=== PATIENT | male | born 1955 | race Caucasian/White ===

== ENCOUNTER 2017-04-08 02:45 | Emergency (ER) | payer OTHER ==
--- NOTE | 2017-04-08 03:16 | ED Physician Documentation ---
PD HPI URI - Stated complaint Stated Complaint: COUGH,CONGESTION - Chief complaint Chief Complaint: Resp - History obtained from History obtained from: Patient, Family - History of Present Illness Timing - onset: How many days ago (3) Timing details: Gradual onset, Still present Associated symptoms: Fever, Chills, Nasal congestion, Rhinorrhea, Productive cough Contributing factors: No: Sick contact Similar symptoms before: Has not had sx before Recently seen: Not recently seen - Additional information Additional information: Patient is a 62 year old male with no significant past medical history who is presenting to the emergency department for cough, congestion, fevers for the last three days. Review of Systems Constitutional: reports: Fever, Chills Eyes: denies: Decreased vision Ears: denies: Ear pain, Drainage/discharge Nose: reports: Rhinorrhea / runny nose, Congestion, Sinus pressure / pain Throat: denies: Sore throat Respiratory: reports: Cough. denies: Wheezing GI: denies: Nausea, Vomiting : reports: Reviewed and negative Musculoskeletal: denies: Neck pain, Back pain, Extremity pain Neurologic: denies: Generalized weakness, Focal weakness Immunocompromised: denies: Immunocompromised PD PAST MEDICAL HISTORY - Past Medical History Past Medical History: No - Past Surgical History Past Surgical History: No - Present Medications Home Medications: Ambulatory Orders Medication Instructions Recorded Confirmed Azithromycin [Zithromax] 250 mg PO DAILY #4 tablet 04/08/17 Benzonatate [Tessalon Perle] 100 mg PO TID #15 capsule 04/08/17 Codeine Phosphate/Guaifenesin 5 ml PO DAILY #100 ml 04/08/17 [Guaifen-Codeine 100-10 mg/5 ml] - Allergies Allergies/Adverse Reactions: Allergies Allergy/AdvReac Type Severity Reaction Status Date / Time No Known Drug Allergies Allergy Verified 04/08/17 03:00 - Social History Does the pt smoke?: No Smoking Status: Never smoker Does the pt drink ETOH?: No Does the pt have substance abuse?: No - Immunizations Immunizations are current?: Yes - POLST Patient has POLST: No PD ED PE NORMAL - Vitals Vital signs reviewed: Yes - General General: Alert and oriented X 3 - HEENT HEENT: Atraumatic, PERRL - Neck Neck: Supple, no meningeal sign - Cardiac Cardiac: RRR, No murmur - Abdomen Abdomen: Soft, Non tender, Non distended - Derm Derm: Normal color, Warm and dry, No rash - Extremities Extremities: No deformity, No edema - Neuro Neuro: Alert and oriented X 3, No motor deficit, No sensory deficit, Normal speech Eye Opening: Spontaneous Motor: Obeys Commands Verbal: Oriented GCS Score: 15 PD ED PE EXPANDED - HEENT HEENT: Nasal congestion, Rhinorrhea - Respiratory Respiratory: Decreased breath sounds, Right lower lobe, Left lower lobe Results - Vitals Vitals: Vital Signs - 24 hr 04/08/17 02:45 Temperature 37.6 C H Heart Rate 84 Respiratory 19 Rate Blood Pressure 127/75 O2 Saturation 96 Oxygen O2 Source Room air - Labs Labs: Laboratory Tests 04/08/17 02:54 Influenza A (Rapid) Negative Influenza B (Rapid) Negative Influenza Types A,B Ag - - Rads (name of study) chest x-ray Radiology: Final report received (bilateral infiltrates) PD MEDICAL DECISION MAKING - ED course Complexity details: reviewed old records, reviewed results, re-evaluated patient , considered differential, d/w patient, d/w family ED course: Patient was seen and examined at bedside. flu swab was performed and imaging was ordered. when patient returned the results were reviewed. patient was found to have bilateral infiltrates. Patient was treated with azithromycin and robitussin ac. Patient was able to tolerate PO without difficulty and was appropriate for outpatient antibiotics. Patient was discharged in stable condition. Departure - Departure Disposition: 01 Home, Self Care Clinical Impression: Pneumonia Condition: Good Instructions: ED Pneumonia Adult Follow-Up: primary,care provider [Other] - Within 3 Days Prescriptions: Azithromycin [Zithromax] 250 mg PO DAILY #4 tablet Benzonatate [Tessalon Perle] 100 mg PO TID #15 capsule Codeine Phosphate/Guaifenesin [Guaifen-Codeine 100-10 mg/5 ml] 5 ml PO DAILY # 100 ml Comments: Your symptoms today are being caused by pneumonia. You had your first dose of antibiotics today and will need to be on them for 5 days total. You can take motrin or tylenol for fevers and chills and over the counter cold and flu medications. You have been prescribed two cough medicines, the one with codeine you should take at not and you cannot drive or operate heavy machinery while taking it. You should follow up with your doctor this week. You may return to the emergency department at any time for new, worsening or uncontrollable symptoms.
--- NOTE | 2017-04-08 03:27 | XRAY Report ---
EXAM: CHEST RADIOGRAPHY EXAM DATE: 04/08/2017 03:09 AM. CLINICAL HISTORY: Cough and congestion. Fever. COMPARISON: None. TECHNIQUE: 2 views. FINDINGS: Lungs/Pleura: Bibasilar atelectasis or infiltrate. No pleural effusion seen. No pneumothorax. Mediastinum: Heart and mediastinal contours are unremarkable. Other: None. IMPRESSION: 1. Bibasilar atelectasis or infiltrate. [facility] Referring Provider Line: [phone] SITE ID: [id number]
[2017-04-08] MEDS ORDERED: guaiFENesin/CODEINE 5 ML UDC PO STA (03:29)
[2017-04-08] MEDS ORDERED: AZITHROMYCIN 250 MG TABLET PO STA (03:29)
[2017-04-08 03:57] VITALS: BP 111/69
== END 2017-04-08 03:55 | disposition home or self-care (01) ==
LOC: ED 02:45
DX: J18.9 Pneumonia, unspecified organism (principal)
CPT/HCPCS: 71046; 87275; 87276; 99283; 99284; A9270

== ENCOUNTER 2017-12-31 12:30 | Emergency (ER) | payer OTHER ==
[2017-12-31 13:09] VITALS: BP 113/71
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
== END 2017-12-31 14:38 | disposition home or self-care (01) ==
LOC: ED 12:30
DX: S16.1XXA Strain of muscle, fascia and tendon at neck level, initial encounter (principal); V43.52XA Car driver injured in collision with other type car in traffic accident, initial encounter
CPT/HCPCS: 99283

== ENCOUNTER 2018-12-18 06:58 | Day surgery (SDC) | payer OTHER ==
[2018-12-18] MEDS ORDERED: MIDAZOLAM 2 MG/2 ML VIAL IVP ONE (06:59)
[2018-12-18] MEDS ORDERED: fentaNYL 100 MCG/2 ML VIAL IVP ONE (06:59)
[2018-12-18] MEDS ORDERED: LACTATED RINGERS 1,000 ML IV ONE (07:23)
[2018-12-18 10:11] VITALS: BP 104/74
== END 2018-12-18 06:59 | disposition home or self-care (01) ==
LOC: SDS 06:58
PROVIDERS: ATTEND Surgery
PROC: 0DBK8ZZ Excision of Ascending Colon, Via Natural or Artificial Opening Endoscopic (ICD-10-PCS; 2018-12-18)
PROC: 0DBN8ZZ Excision of Sigmoid Colon, Via Natural or Artificial Opening Endoscopic (ICD-10-PCS; principal; 2018-12-18 08:15)
DX: Z12.11 Encounter for screening for malignant neoplasm of colon (principal); D12.2 Benign neoplasm of ascending colon; D12.5 Benign neoplasm of sigmoid colon; K63.5 Polyp of colon
CPT/HCPCS: 45380; 45385; 88305; J7120

== ENCOUNTER 2019-05-07 16:34 | Emergency (ER) | payer MEDICARE, OTHER ==
--- NOTE | 2019-05-07 17:00 | ED Physician Documentation ---
History of Present Illness - Stated complaint Stated Complaint: COUGH,R SIDE CHEST PAIN, - Chief complaint Chief Complaint: General - History obtained from History obtained from: Patient - Additonal information Additional information: 64-year-old male with no past medical history. He is here today with a one-week history of runny nose, sinus congestion, mild sore throat, and a cough he has had past 2 to 3 days. He states he has a cough he has right-sided chest pain. He denies any fevers, myalgias, or chills. No abdominal pain, nausea, vomiting, or diarrhea. No urinary complaints. No skin changes.Patient denies any past surgeries or hospitalizations. He states he did have a walking pneumonia Approximately 1 week ago and was treated as an outpatient with antibiotics. Review of Systems Constitutional: reports: Fatigue. denies: Fever, Chills, Myalgias, Sweats Eyes: denies: Loss of vision, Decreased vision, Photophobia, Discharge Ears: denies: Ear pain, Drainage/discharge, Reviewed and negative Nose: reports: Rhinorrhea / runny nose, Congestion, Sinus pressure / pain. denies: Foreign Body Throat: reports: Sore throat. denies: Oral lesions / sores, Reviewed and negative Cardiac: reports: Chest pain / pressure. denies: Palpitations, Pedal edema, Calf pain Respiratory: reports: Cough. denies: Dyspnea, Hemoptysis GI: denies: Abdominal Pain, Nausea, Vomiting, Diarrhea : reports: Reviewed and negative Skin: denies: Rash Musculoskeletal: denies: Neck pain PD PAST MEDICAL HISTORY - Past Medical History Past Medical History: No Cardiovascular: None Respiratory: None Neuro: None Endocrine/Autoimmune: None GI: None : None HEENT: None Psych: None Musculoskeletal: None Derm: None - Past Surgical History Past Surgical History: No General: Colonoscopy - Present Medications Home Medications: Ambulatory Orders Medication Instructions Recorded Confirmed No Known Home Medications 12/17/18 12/17/18 - Allergies Allergies/Adverse Reactions: Allergies Allergy/AdvReac Type Severity Reaction Status Date / Time No Known Drug Allergies Allergy Verified 05/07/19 16:42 - Social History Does the pt smoke?: No Smoking Status: Never smoker Does the pt drink ETOH?: No Does the pt have substance abuse?: No - Immunizations Immunizations are current?: Yes - POLST Patient has POLST: No PD ED PE NORMAL - Vitals Vital signs reviewed: Yes - General General: Alert and oriented X 3 - HEENT HEENT: Atraumatic, PERRL, Pharynx benign. No: Ears normal - Neck Neck: Supple, no meningeal sign - Cardiac Cardiac: No murmur - Respiratory Respiratory: No respiratory distress, Clear bilaterally - Abdomen Abdomen: Normal bowel sounds - Derm Derm: Normal color - Extremities Extremities: No deformity - Neuro Neuro: Alert and oriented X 3 Motor: Obeys Commands Verbal: Oriented Results - Vitals Vitals: Vital Signs - 24 hr 05/07/19 05/07/19 05/07/19 16:38 16:59 18:10 Temperature 36.4 C L 36.8 C Heart Rate 62 57 L 60 Respiratory 16 16 Rate Blood Pressure 126/83 H 128/88 H 118/88 H O2 Saturation 97 99 98 Oxygen O2 Source Room air - Labs Labs: Laboratory Tests 05/07/19 17:10 WBC 4.0 L RBC 4.43 L Hgb 13.2 L Hct 39.0 L MCV 88.0 MCH 29.8 MCHC 33.8 RDW 12.2 Plt Count 218 MPV 9.4 Neut # (Auto) 2.2 Lymph # (Auto) 1.2 L Sully # (Auto) 0.4 Eos # (Auto) 0.1 Baso # (Auto) 0.0 Absolute Nucleated RBC 0.00 Nucleated RBC % 0.0 PD MEDICAL DECISION MAKING - ED course Complexity details: reviewed results, re-evaluated patient, considered differential, other (Patient remained nontoxic-appearing in no respiratory distress during the ER course. Discussed his unremarkable chest x-ray and CBC. His covert screening is pending. I do believe patient can safely be discharged from the emergency room at this time without further testing. Patient is agreeable to this. He agrees to maintain isolation precautions until he is symptom free for 3 to 5 days. He may call back within 24 hours to check the status of his test results. We discussed the signs and symptoms of respiratory distress. He will return to the emergency room at any time for any emergent changes or concerns.) Departure - Departure Disposition: 01 Home, Self Care Clinical Impression: Viral syndrome Condition: Stable Instructions: ED Viral Syndrome Comments: Maintain oral hydration. Use ibuprofen and Tylenol as needed for comfort. You may call back to discuss your pending coated test results. Return to the emergency room at any time for any emergent changes as needed.
[2019-05-07 17:23] LABS: EOSINOPHILS # (AUTO) 0.1 10^3/uL (0.0-0.7); EOSINOPHILS % (AUTO) 1.3 %; HGB - HEMOGLOBIN 13.2 g/dL (14.0-18.0); LYMPHOCYTES # (AUTO) 1.2 10^3/uL (1.5-3.5); LYMPHOCYTES % (AUTO) 31.3 %; MEAN CORPUSCULAR HEMOGLOBIN 29.8 pg (27.0-31.0); MEAN CORPUSCULAR HGB CONC 33.8 g/dL (32.0-36.0); MEAN PLATELET VOLUME 9.4 fL (7.4-11.4); MONOCYTES # (AUTO) 0.4 10^3/uL (0.0-1.0); MONOCYTES % (AUTO) 10.9 %; NEUTROPHILS # (AUTO) 2.2 10^3/uL (1.5-6.6); NEUTROPHILS % (AUTO) 55.2 %; PLT - PLATELET COUNT 218 10^3/uL (130-450); RED BLOOD COUNT 4.43 10^6/uL (4.70-6.10); RED CELL DISTRIBUTION WIDTH 12.2 % (12.0-15.0)
--- NOTE | 2019-05-07 18:09 | XRAY Report ---
Reason: chest pain Procedure Date: 05/07/2019 Accession Number: [id number] / [id number] Procedure: XR - Chest 1 View X-Ray CPT Code: 70998 Final Report FULL RESULT: EXAM: CHEST RADIOGRAPHY EXAM DATE: 05/07/2019 05:37 PM. CLINICAL HISTORY: Chest pain. COMPARISON: CHEST 2 VIEW 04/08/2017 2:55 AM. TECHNIQUE: 1 view. FINDINGS: Lungs/Pleura: No focal opacities evident. No pleural effusion. No pneumothorax. Mediastinum: Within exam limitations, the cardiomediastinal contour is normal. IMPRESSION: No acute cardiopulmonary disease seen. [facility]
[2019-05-07 18:11] VITALS: BP 118/88
== END 2019-05-07 18:51 | disposition home or self-care (01) ==
LOC: ED 16:34
DX: B34.9 Viral infection, unspecified (principal)
CPT/HCPCS: 71045; 81599; 85025; 99283; 99284

== ENCOUNTER 2019-10-30 12:02 | Outpatient (CLI) | payer MEDICARE, OTHER ==
--- NOTE | 2019-10-30 14:36 | XRAY Report ---
PROCEDURE: Hip w/Pelvis 2-3V LT INDICATIONS: PAIN IN LEFT HIP TECHNIQUE: AP pelvis with lateral view(s) of the left hip(s). COMPARISON: None. FINDINGS: Bones: No fractures or dislocations. Pelvic ring appears intact. No suspicious bony lesions. Soft tissues: The visualized bowel gas pattern is normal. No suspicious soft tissue calcifications. IMPRESSION: Normal left hip. Reviewed by: Melisa Shell MD on 10/30/2019 1:35 PM [facility]DT Approved by: Melisa Shell MD on 10/30/2019 1:35 PM AKDT Station ID: [id number]
== END 2019-10-30 12:03 | disposition home or self-care (01) ==
LOC: DI 12:02
PROVIDERS: ATTEND Internal Medicine
DX: M25.552 Pain in left hip (principal)

== ENCOUNTER 2021-07-13 16:20 | Outpatient (CLI) | payer MEDICARE, OTHER ==
--- NOTE | 2021-07-13 17:14 | XRAY Report ---
PROCEDURE: Lumbar Spine 2 View INDICATIONS: NECK PAIN, LOW BACK PAIN TECHNIQUE: 2 views of the lumbar spine were acquired. COMPARISON: None FINDINGS: Bones: 5 [id number] vertebrae are present. There is normal bony alignment. No vertebral body compression fractures. No suspicious bony lesions. Multilevel degenerative disc space loss and face t arthropathy. Suspect canal stenosis. Soft tissues: Overlying bowel gas pattern is normal. No suspicious soft tissue calcifications. IMPRESSION: Multilevel degenerative change. Suspect canal stenosis. Comment: Lumbar spine MRI may be helpful. Reviewed by: Inder Arroyo MD on 07/13/2021 5:13 PM PDT Approved by: Inder Arroyo MD on 07/13/2021 5:13 PM PDT Station ID: [id number]
--- NOTE | 2021-07-13 17:21 | XRAY Report ---
PROCEDURE: Cervical Spine 2 View INDICATIONS: NECK PAIN, LOW BACK PAIN TECHNIQUE: 3 view(s) of the cervical spine were acquired. COMPARISON: None. FINDINGS: Bones: No fractures or dislocations to the T1 level. The lateral masses of C1 appear intact on the odontoid view. Moderate degenerative change in the cervical spine. Vertebrae body osteophytosis. Unc overtebral joint hypertrophy. Intervertebral disc space height loss. No suspicious bony lesions. Soft tissues: No prevertebral soft tissue swelling. IMPRESSION: Moderate degenerative change in the cervical spine. Reviewed by: Erlin Looney MD on 07/13/2021 5:19 PM PDT Approved by: Erlin Looney MD on 07/13/2021 5:19 PM PDT Station ID: [id number]
== END 2021-07-13 23:59 | disposition home or self-care (01) ==
LOC: DI 16:20
PROVIDERS: ATTEND Internal Medicine
DX: M54.59 Other low back pain (principal); M47.812 Spondylosis without myelopathy or radiculopathy, cervical region

== ENCOUNTER 2021-07-21 14:56 | Outpatient (CLI) | payer MEDICARE, OTHER ==
--- NOTE | 2021-07-22 10:10 | MRI Report ---
PROCEDURE: Lumbar Spine W/O INDICATIONS: LOW BACK PAIN TECHNIQUE: Noncontrast sagittal T1 spin echo and T2 fast echo, sagittal STIR, axial T1 and T2 fast spin echo thr ough the lumbar spine. In cases with scoliosis, additional coronal T2 fast spin echo may be performe d. COMPARISON: Lumbar spine plain films at 07/13/2021. FINDINGS: Image quality: Excellent. Alignment and Curvature: Trace degenerative retrolisthesis of L5 on S1. Bone Marrow: Marrow is of normal overall signal. No acute vertebral body compression fractures. Spinal Cord: Conus medullaris terminates at the L1 level. Visualized cord demonstrates normal signa l and size. Paraspinous Soft Tissues: No paravertebral masses. T12-L1: No canal stenosis or foraminal stenosis. L1-L2: No canal stenosis or foraminal stenosis. L2-L3: Mild chronic disc height loss. Posterior disc bulge. Facet hypertrophy. Mild canal stenosis . Mild bilateral foraminal stenosis. L3-L4: Mild chronic disc height loss. Disc bulge. Facet hypertrophy. Mild canal stenosis. Mild bila teral foraminal stenosis. L4-L5: Mild chronic disc height loss. Disc bulge. Facet hypertrophy. Mild to moderate canal stenosi s. Mild to moderate bilateral foraminal stenosis. L5-S1: Severe chronic disc height loss. Mild central posterior disc protrusion. Facet hypertrophy. Moderate canal stenosis. Moderate bilateral foraminal narrowing with mild flattening deformity on the exiting bilateral L5 nerve roots. IMPRESSION: 1. Multilevel degenerative change with multilevel facet arthropathy. 2. Canal stenosis is mild at L2-L3, mild at L3-L4, mild to moderate at L4-L5, and moderate at L5-S1. 3. Multilevel foraminal narrowing as described above. Reviewed by: Inder Arroyo MD on 07/22/2021 10:09 AM PDT Approved by: Inder Arroyo MD on 07/22/2021 10:09 AM PDT Station ID: [id number]
== END 2021-07-21 14:57 | disposition home or self-care (01) ==
LOC: DI 14:56
PROVIDERS: ATTEND Internal Medicine
DX: Z12.2 Encounter for screening for malignant neoplasm of respiratory organs (principal); M47.816 Spondylosis without myelopathy or radiculopathy, lumbar region; M48.061 Spinal stenosis, lumbar region without neurogenic claudication; M48.07 Spinal stenosis, lumbosacral region; M51.27 Other intervertebral disc displacement, lumbosacral region

== ENCOUNTER 2021-08-31 10:51 | Outpatient (CLI) | payer MEDICARE, OTHER ==
[2021-08-31 11:23] LABS: BASOPHILS % (AUTO) 0.6 %; EOSINOPHILS # (AUTO) 0.1 10^3/uL (0.0-0.7); EOSINOPHILS % (AUTO) 1.6 %; HCT - HEMATOCRIT 40.3 % (42.0-52.0); HGB - HEMOGLOBIN 13.4 g/dL (14.0-18.0); LYMPHOCYTES # (AUTO) 0.8 10^3/uL (1.5-3.5); LYMPHOCYTES % (AUTO) 25.2 %; MEAN CORPUSCULAR HEMOGLOBIN 29.1 pg (27.0-31.0); MEAN CORPUSCULAR HGB CONC 33.3 g/dL (32.0-36.0); MEAN CORPUSCULAR VOLUME 87.6 fL (80.0-94.0); MEAN PLATELET VOLUME 9.5 fL (7.4-11.4); MONOCYTES # (AUTO) 0.3 10^3/uL (0.0-1.0); MONOCYTES % (AUTO) 10.7 %; NEUTROPHILS % (AUTO) 61.6 %; PLT - PLATELET COUNT 231 10^3/uL (130-450); RED CELL DISTRIBUTION WIDTH 13.1 % (12.0-15.0); WHITE BLOOD COUNT 3.2 x10^3/uL (4.8-10.8)
[2021-08-31 11:30] LABS: ALBUMIN 4.2 g/dL (3.2-5.5); ALBUMIN/GLOBULIN RATIO 1.4 (1.0-2.2); ALKALINE PHOSPHATASE 48 IU/L (42-121); ALT ALANINE AMINOTRANSFERASE 22 IU/L (10-60); AST ASPARTATE AMINOTRANSFERASE 21 IU/L (10-42); BILIRUBIN,TOTAL 0.3 mg/dL (0.2-1.0); BUN - BLOOD UREA NITROGEN 10 mg/dL (6-20); CALCIUM 8.9 mg/dL (8.5-10.3); CARBON DIOXIDE - CO2 29 mmol/L (21-32); CHLORIDE 102 mmol/L (101-111); CHOL/HDL RATIO 3.9 (<5.0); CHOLESTEROL 225 mg/dL; GFR - MDRD 75 (>89); GLUCOSE 101 mg/dL (70-100); HDL CHOLESTEROL 57 mg/dL; LDL CHOLESTEROL,CALCULATED 159 mg/dL; LDL/HDL RATIO 2.8 (<3.6); SODIUM 139 mmol/L (135-145); TOTAL PROTEIN 7.1 g/dL (6.7-8.2); TRIGLYCERIDES 46 mg/dL; VLDL CHOLESTEROL 9 mg/dL
[2021-08-31 11:36] LABS: T4 (THYROXINE) 6.7 ug/dL (6.09-12.23)
[2021-08-31 11:42] LABS: THYROID STIMULATING HORMONE 2.87 uIU/mL (0.34-5.60)
== END 2021-08-31 10:52 | disposition home or self-care (01) ==
LOC: LAB 10:51
PROVIDERS: ATTEND Internal Medicine
DX: E78.49 Other hyperlipidemia (principal); Z79.899 Other long term (current) drug therapy; I49.8 Other specified cardiac arrhythmias; E03.9 Hypothyroidism, unspecified; D64.9 Anemia, unspecified
CPT/HCPCS: 36415; 80053; 80061; 83721; 84436; 84443; 85025; 85651

== ENCOUNTER 2022-02-27 16:10 | Outpatient (CLI) | payer MEDICARE, OTHER ==
--- NOTE | 2022-02-27 17:05 | XRAY Report ---
PROCEDURE: Shoulder 3 View BILAT INDICATIONS: BILATERAL SHOULDER PAIN TECHNIQUE: 6 views of the shoulder were acquired. COMPARISON: None. FINDINGS: Bones: No fractures or dislocations. Moderate bilateral acromioclavicular joint osteoarthritic donahue es are seen with joint space narrowing, subchondral sclerosis and marginal osteophyte formation. Mild bilateral glenohumeral joint osteoarthritic changes are also noted. No suspicious bony lesions. Vis ualized ribs appear intact. Soft tissues: No suspicious soft tissue calcifications. IMPRESSION: Moderate bilateral acromioclavicular joint osteoarthritis and mild bilateral glenohumera l joint osteoarthritis. No fracture or dislocation. No gross soft tissue abnormalities. Reviewed by: Wing Hernandez MD on 02/27/2022 5:04 PM PST Approved by: Wing Hernandez MD on 02/27/2022 5:04 PM PST Station ID: [id number]
--- NOTE | 2022-02-27 17:06 | XRAY Report ---
PROCEDURE: Knee 3 View RT INDICATIONS: KNEE SHOULDER PX TECHNIQUE: 3 views of the right knee(s) were acquired. COMPARISON: None. FINDINGS: Bones: No fractures or dislocations. Mild tricompartmental osteoarthritis is noted with joint space narrowing and small marginal osteophyte formation. No suspicious bony lesions. Soft tissues: Small suprapatellar joint effusion is seen.. No suspicious soft tissue calcifications . IMPRESSION: Mild tricompartmental osteoarthritis and small joint effusion. No fracture or dislocatio n. Reviewed by: Wing Hernandez MD on 02/27/2022 5:04 PM PST Approved by: Wing Hernandez MD on 02/27/2022 5:04 PM PST Station ID: [id number]
== END 2022-02-27 16:11 | disposition home or self-care (01) ==
LOC: DI 16:10
PROVIDERS: ATTEND Internal Medicine
DX: M19.011 Primary osteoarthritis, right shoulder (principal); M19.012 Primary osteoarthritis, left shoulder; M17.11 Unilateral primary osteoarthritis, right knee; M25.461 Effusion, right knee

== ENCOUNTER 2022-03-02 11:50 | Outpatient (CLI) | payer MEDICARE, OTHER ==
[2022-03-02 12:23] LABS: % IRON SATURATION 32 % (20-50); GLUCOSE 99 mg/dL (70-100); IRON 112 ug/dL (45-182); TOTAL IRON BINDING CAPACITY 350 ug/dL (250-450); TRANSFERRIN 250 mg/dL (180-329)
[2022-03-02 12:42] LABS: FERRITIN 130.8 ng/mL (23.9-336.2)
[2022-03-02 12:45] LABS: FOLATE 12.35 ng/mL (5.90 - >24.8)
== END 2022-03-02 11:51 | disposition home or self-care (01) ==
LOC: LAB 11:50
PROVIDERS: ATTEND Internal Medicine
DX: D64.9 Anemia, unspecified (principal); E74.9 Disorder of carbohydrate metabolism, unspecified; E78.49 Other hyperlipidemia; R53.83 Other fatigue; I49.8 Other specified cardiac arrhythmias; E03.9 Hypothyroidism, unspecified; Z79.899 Other long term (current) drug therapy
CPT/HCPCS: 36415; 82306; 82607; 82728; 82746; 82947; 83540; 84403; 84466